=== PATIENT | male | born 1970 | race Caucasian/White ===

== ENCOUNTER 2018-11-10 10:25 | Emergency (ER) | payer MEDICAID, SELFPAY ==
[2018-11-10 10:28] VITALS: BP 128/73; PULSE 56; RESP 16; TEMP 36.8; O2SAT 99
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
[2018-11-10 11:33] VITALS: BP 128/73; PULSE 56; RESP 16; TEMP 36.8; O2SAT 99
== END 2018-11-10 11:34 | disposition home or self-care (01) ==
LOC: ER 11:30
PROVIDERS: Emergency Provider Emergency Medicine; PCP Specialist/Technologist Athletic Trainer
DX: S30.0XXA Contusion of lower back and pelvis, initial encounter (principal); S20.222A Contusion of left back wall of thorax, initial encounter; V18.0XXA Pedal cycle driver injured in noncollision transport accident in nontraffic accident, initial encounter; Y93.55 Activity, bike riding
CPT/HCPCS: 99284; 71046; 72100

== ENCOUNTER 2018-12-05 19:54 | Emergency (ER) | payer MEDICAID, SELFPAY ==
[2018-12-05 19:56] VITALS: BP 123/76; PULSE 46; RESP 14; TEMP 36.6; O2SAT 97
--- NOTE | 2018-12-05 20:33 | ED.GENADUL_ITS ---
Discharge Plan Disposition Patient Disposition: HOME Condition: Good Discharge Details Chief Complaint: DentalOral Clinical Impression: Infectious disease contact Primary Care Provider: Ori Fisher ED Provider: Denilson Coates Home Meds and New Rx's Prescriptions: No Action ibuprofen [Advil] 200 mg Tablet 600 mg PO Q6H PRNRF: 0 Discharge Instructions Instructions: Oral Herpes Simplex Virus Infections (ED) Referrals: Ori Fisher [Primary Care Provider] - (Please keep your scheduled appoint with your primary care provider to discuss your health concerns) Discharge Data Discharge Date/Time-TO BE ENTERED AT DEPARTURE: 12/05/18 20:55 Medical Decision Making Patient presenting to the emergency department for concern about herpes simplex virus. Patient is requesting testing. Patient states at this time he is asymptomatic has no sores or lesions. Patient reports that his previous signi ficant other had issues with cold sores and now that he is in a new relationship he is concerned about passing them onto his new partner. Physical exam is completely unremarkable. Discussed with patient that this is mostly a clinical diagnosis and that given his overall healthy nature and unremarkable exam but no emergent findings are noted nor do I believe that any testing is required at this time. Patient was encouraged to follow-up with his primary care provider for any further concerns otherwise I do not feel that patient has any life- threatening illness or need of intervention at this time. Did discuss with patient [id number] therapies for outbreaks. After discussion of diagnosis and plan of care patient has no further needs, questions, or concerns and states clear understanding to return to the emergency department for any worsening symptoms. HPI General Mode of arrival: ambulatory . Date/Time Provider Initiated Documentation: 12/05/18 19:58 . Limitations to Documentation: no limitations . Information obtained by: patient and RN notes reviewed . History of Present Illness 48 year old M presents to the emergency department with the chief complaint of Concern about HSV-1, Patient notes no other symptoms.. Patient did receive the following treatments prior to arrival, none Related Data Home Medications Medication Instructions Recorded Confirmed ibuprofen [Advil] 600 mg PO Q6H PRN 11/10/18 11/10/18 Allergies Allergy/AdvReac Type Severity Reaction Status Date / Time No Known Allergies Allergy Unverified 11/10/18 11:14 General Stated Complaint: DentalOral SAHRA: 5 Review of Systems Constitutional Constitutional: Denies fever(s) ENT Ears, Nose, Mouth, and Throat: Reports as per HPI and Reports nose pain (Left nare lesion with outbreak) Genitourinary Genitourinary: Denies genital lesions [facility] Medical History Inguinal hernia Surgical History Repair of inguinal hernia (02/15/14) right Social History Smoking/Tobacco Use Status: Former Tobacco Use Alcohol Intake: current Alcohol Intake frequency: a few times a week Drug use: Daily Substance use type: marijuana Do you feel safe at home: Yes Do you feel safe in your relationship?: Yes Exam Const General: cooperative, healthy appearing, comfortable and no acute distress Nutritional Appearance: average body habitus Orientation: alert, awake and oriented x3 HENMT Ears: hearing grossly normal bilaterally, external ears normal and TM's normal bilaterally General nose exam: external nose normal, nares normal and no nasal polyps Face and sinus: normal facial exam Mouth: oral mucosae normal, lip normal and tongue normal Throat: posterior oropharynx normal, tonsils normal and uvula midline Resp Effort & Inspection: normal respiratory effort and able to speak in complete sentences Neuro General: alert, awake, oriented x3, gait normal and moves all extremities Course Vital Signs Vital signs: Vital Signs Temperature 36.6 C 12/05/18 19:56 Pulse 46 L 12/05/18 19:56 Respiratory Rate 14 12/05/18 19:56 Blood Pressure 123/76 12/05/18 19:56 Pulse Oximetry 97 12/05/18 19:56 Temperature 36.6 C 12/05/18 19:56 Temperature Source Tympanic 12/05/18 19:56 Pulse 46 L 12/05/18 19:56 Respiratory Rate 14 12/05/18 19:56 Respiratory Effort Non-Labored 12/05/18 20:02 Blood Pressure 123/76 12/05/18 19:56 Pulse Oximetry 97 12/05/18 19:56 Pain Level 0 12/05/18 20:02
[2018-12-05 20:53] VITALS: BP 123/76; PULSE 46; RESP 14; O2SAT 97
== END 2018-12-05 20:55 | disposition home or self-care (01) ==
PROVIDERS: Emergency Provider Nurse Practitioner Family; PCP Specialist/Technologist Athletic Trainer
DX: Z20.828 Contact with and (suspected) exposure to other viral communicable diseases (principal)
CPT/HCPCS: 99281

== ENCOUNTER 2018-12-10 09:28 | Outpatient (REF) | payer MEDICAID, SELFPAY ==
[2018-12-13 11:34] LABS: PSA, Screening 0.8 ng/ml (0-2.5)
== END 2018-12-10 09:48 ==
LOC: NCHCN 09:28
PROVIDERS: PCP Specialist/Technologist Athletic Trainer; Visit Provider Specialist/Technologist Athletic Trainer
DX: Z12.5 Encounter for screening for malignant neoplasm of prostate (principal); Z00.00 Encounter for general adult medical examination without abnormal findings
CPT/HCPCS: 84153

== ENCOUNTER 2019-05-25 12:30 | Outpatient (CLI) | payer MEDICAID, SELFPAY ==
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
== END 2019-05-25 12:50 ==
PROVIDERS: PCP Specialist/Technologist Athletic Trainer; Visit Provider Nurse Practitioner Family
DX: M48.02 Spinal stenosis, cervical region (principal); M47.812 Spondylosis without myelopathy or radiculopathy, cervical region
CPT/HCPCS: 72050

== ENCOUNTER 2021-08-05 09:44 | Outpatient (REF) | payer MEDICAID, SELFPAY ==
[2021-08-05 16:10] LABS: Hemoglobin A1C 5.8 % (<5.7)
[2021-08-05 16:24] LABS: Anion Gap 9.8 mmol/L (3-11); BUN 16 mg/dL (7-18); CO2 25.2 mmol/L (21.0-32.0); CREATININE 0.8 mg/dL (0.70-1.30); Calculated LDL 107 mg/dL (<100); Chloride 105 mmol/L (98-107); Cholesterol 198 mg/dL (<200); Glucose 92 mg/dL (74-106); HDL Cholesterol 82 mg/dL (40-60); Potassium 4.6 mmol/L (3.5-5.1); Sodium 140 mmol/L (136-145); Triglyceride 46 mg/dL (<150)
[2021-08-06 20:12] LABS: PSA, Screening 0.7 ng/mL (<=2.5)
[2021-08-07 10:12] LABS: Lyme Ab w Rflx to Lyme Confirm Negative (Negative)
[2021-08-08 15:08] LABS: Spotted Fever Group Ab IgG <1:64 (<1:64); Spotted Fever Group Ab IgM <1:64 (<1:64)
[2021-08-09 00:02] LABS: Anaplasma phagocytophilum Negative (Negative); B. miyamotoi PCR Negative (Negative); Babesia divergens/MO-1 Negative (Negative); Babesia duncani Negative (Negative); Babesia microti Negative (Negative); Ehrlichia chaffeensis Negative (Negative); Ehrlichia ewingii/canis Negative (Negative); Ehrlichia muris eauclairensis Negative (Negative)
== END 2021-08-05 09:45 | disposition home or self-care (01) ==
LOC: NCHCN 09:44
PROVIDERS: PCP Specialist/Technologist Athletic Trainer; Visit Provider Nurse Practitioner Family
DX: R53.83 Other fatigue (principal); M25.59 Pain in other specified joint; M25.562 Pain in left knee; Z12.5 Encounter for screening for malignant neoplasm of prostate; Z00.00 Encounter for general adult medical examination without abnormal findings; R73.09 Other abnormal glucose; Z13.220 Encounter for screening for lipoid disorders
CPT/HCPCS: 80048; 80061; 84153; 87798; 83036; 86618; 86757

== ENCOUNTER 2022-06-24 14:30 | Outpatient (CLI) | payer MEDICAID, SELFPAY ==
--- NOTE | 2022-06-24 | DI.RAD_ITS ---
Exam(s) XR TIB/FIB LT EXAM: XR TIB/FIB LT CLINICAL HISTORY: PAIN LEFT LOWER LEG M79.662. TECHNIQUE: 2D digital imaging was performed of the left tibia and fibula. Two images were obtained. AP and lateral views were obtained. COMPARISON: No exams were available for comparison FINDINGS: BONES: There is a nondisplaced fracture of the midshaft of the left fibula. There does appear to be some callus formation about the fracture suggesting a subacute fracture. Please correlate with patie nt's clinical history. No bony destructive lesion is seen. Visualized portion of knee and ankle join ts are unremarkable. SOFT TISSUE: Normal. IMPRESSION: Nondisplaced fracture involving the midshaft of the left fibula. There is a question of callus forma tion about the fracture suggesting a subacute fracture. However, please correlate with patient's cli nical history. DATA REPOSITORY: RADIATION DOSE DELIVERED:
--- OUTSIDE RECORDS SUMMARY | 2022-06-24 14:35 | XMS_ITS | CCD ---
Author Name Auto Generated Organization [facility] Care Team Providers Care Molder Machine Name Role Phone RENEE PEREZ, ISIDORO M Consulting Provider [phone] NEEDS UPDATE, UNKNOWN Referring Provider Unavail able PENDING, PCP Primary Care Provider Unavailabl e Allergies, Adverse Reactions, Alerts Substance Reaction Status NKA Active Medications Medication Instructions Start Date End Date Status tetanus/diphth/pertuss (Tdap) adult/adol 5 units-2.5 units-18.5 mcg/0.5 mL intramuscular suspension 0.5 mL, IM, 1TIMEONADMISSION, Start: 05/01/19 16:24:00 EST, Routine, Dose Form: INJProvide patient with Vaccine Information Sheet 05/01/2019 05/01/2019 Completed acetaminophen-hydrocodone 325 mg-5 mg oral tablet 1 tab, PO, Q4H PRN, Start: 05/01/19 22:54:00 EST, PRN Pain, Moderate, Routine, Dose Form: TABDo not exceed a total of 4000 mg acetaminophen (or 75 mg/kg for pediatric patients) per 24 hours from all products containing acetaminophen. Acetaminophen content - 1 axk=250 mg, 2 tabs =650 mg, 3 tabs = 975 mg. P&T approved substitute for Lortab and Vicodin. 05/01/2019 05/02/2019 Discontinued acetaminophen-hydrocodone 325 mg-5 mg oral tablet 1 tab, PO, Q4H PRN, PRN Pain, Moderate, X 2 Days, Dose Form: TAB, # 10 tab, 0 Refill(s) 05/02/2019 05/04/2019 Ordered gabapentin 300 mg oral capsule 300 mg ( 1 CAP ), PO, TID, Dose Form: CAP, # 21 CAP, 0 Refill(s) 05/02/2019 05/09/2019 Ordered Medrol Dosepak 4 mg oral tablet ( 1 packet(s) ), PO, PER PKG INFO, as directed on package labeling, X 6 Days, Dose Form: TAB, # 21 tab, 0 Refill(s) as directed on package labeling 05/02/2019 05/08/2019 Ordered Immunizations Vaccine Date Status Refusal Reason tetanus/diphth/pertuss (Tdap) adult/adol 05/01/2019 Given Vital Signs Most recent to oldest [Reference Range]: 1 2 3 PT Patient Goal List Go Home, Return to Previous Level of Function (05/02/2019 10:15:00) Most recent to oldest [Reference Range]: 1 2 3 Height in cm 177.8 cm (05/01/2019 23:39:00) Most recent to oldest [Refer ence Range]: 1 2 3 Height 70 in (05/01/2019 23:39:00) 70 in (05/01/2019 16:11:00) Most recent to oldest [Reference Range]: 1 2 3 Dosing Weight 81.63 kg (05/01/2019 23:55:48) Most recent to oldest [Refer ence Range]: 1 2 3 BMI Calculation 25.82 (05/01/2019 23:39:00) 0 (05/01/2019 16:11:00) Most recent to oldest [Refer ence Range]: 1 2 3 Admission Weight lbs 180 lb (05/01/2019 23:39:00) 0 lb (05/01/2019 16:11:00) Most recent to oldest [Reference Range]: 1 2 3 Blood Pressure [95-159/60-90 mmHg] <content ID='[id number]' >133</content>/<cont ent ID='[id number]' >86</content> mmHg (05/02/2019 13:22:00) <content ID='[id number]' >115</content>/<cont ent ID='[id number]' >72</content> mmHg (05/02/2019 06:04:00) <content ID='[id number] '>129</content>/<co ntent ID='[id number] '>65</content> mmHg (05/02/2019 02:43:00) Most recent to oldest [Reference Range]: 1 2 3 Mean Cuff Pressure [70-105 mmHg] 99 mmHg (05/01/2019 23:12:00) 97 mmHg (05/01/2019 18:19:00) 93 mmHg (05/01/2019 17:09:00) Most recent to oldest [Reference Range]: 1 2 3 Vital Signs Extremity 1 Left arm (05/02/2019 13:22:00) Left arm (05/02/2019 06:04:00) Left arm (05/02/2019 02:43:00) Most recent to oldest [Reference Range]: 1 2 3 Heart Rate Monitor [60-100 bpm] 54 bpm *LOW* (05/01/2019 23:12:00) 60 bpm (05/01/2019 22:11:00) 58 bpm *LOW* (05/01/2019 20:45:00) Most recent to oldest [Reference Range]: 1 2 3 Respiratory Rate [12-20 rpm] 18 rpm (05/02/2019 15:19:00) 18 rpm (05/02/2019 13:22:00) 18 rpm (05/02/2019 10:03:00) Most recent to oldest [Reference Range]: 1 2 3 Temperature Temporal Artery [97.2-100 DegF] 99.8 DegF (05/02/2019 13:22:00) 98.0 DegF (05/02/2019 06:04:00) 97.6 DegF (05/02/2019 02:43:00) Most recent to oldest [Reference Range]: 1 2 3 SpO2 [90-100 %] 97 % (05/02/2019 13:22:00) 97 % (05/02/2019 06:04:00) 96 % (05/02/2019 02:43:00) Most recent to oldest [Reference Range]: 1 2 3 O2 Delivery Room Air (05/02/2019 13:22:00) Room Air (05/02/2019 09:00:00) Room Air (05/02/2019 06:04:00) Results Most recent to oldest [Reference Range]: 1 ALB [3.5-5.2 g/dL] 3.8 g/dL (05/02/2019 05:14:00) ANION GAP [7.0-16.0 mEq/L] 9.0 mEq/L (05/02/2019 05:14:00) BASO % 1 % *NA* (05/02/2019 05:14:00) BASO CT [0.0-0.2 K/uL] 0.1 K/uL (05/02/2019 05:14:00) BUN [7-25 mg/dL] 11 mg/dL (05/02/2019 05:14:00) CA [8.7-10.3 mg/dL] 9.1 mg/dL (05/02/2019 05:14:00) CL [98-109 mEq/L] 101 mEq/L (05/02/2019 05:14:00) CO2 [20-29 mEq/L] 26 mEq/L (05/02/2019 05:14:00) CREA [0.76-1.27 mg/dL] 0.62 mg/dL *LOW* (05/02/2019 05:14:00) EOS % 2 % *NA* (05/02/2019 05:14:00) EOS CT [0.0-0.5 K/uL] 0.1 K/uL (05/02/2019 05:14:00) GLUCOSE [70-99 mg/dL] 98 mg/dL (05/02/2019 05:14:00) HCT [37.5-51.0 %] 36.7 % *LOW* (05/02/2019 05:14:00) HGB [12.6-17.7 g/dL] 11.9 g/dL *LOW* (05/02/2019 05:14:00) LYMPH% 24 % *NA* (05/02/2019 05:14:00) LYMPH CT [0.7-3.1 K/uL] 1.5 K/uL (05/02/2019 05:14:00) MCH [26.6-33.0 pg] 30.4 pg (05/02/2019 05:14:00) MCHC [31.5-35.7 g/dL] 32.4 g/dL (05/02/2019 05:14:00) MCV [79-97 fL] 94 fL (05/02/2019 05:14:00) MONO% 9 % *NA* (05/02/2019 05:14:00) MONO CT [0.1-0.9 K/uL] 0.6 K/uL (05/02/2019 05:14:00) MPV [7.4-10.4 fL] 9.6 fL (05/02/2019 05:14:00) NEUT% 64 % *NA* (05/02/2019 05:14:00) NEUT CT [1.4-7.0 K/uL] 4.1 K/uL (05/02/2019 05:14:00) OSMO CALC [275.0-290.0 mOsm/L] 281.4 mOs m/L (05/02/2019 05:14:00) PLT CNT [150-450 K/uL] 287 K/uL (05/02/2019 05:14:00) K [3.5-5.3 mEq/L] 3.7 mEq/L (05/02/2019 05:14:00) RBC [4.14-5.80 M/uL] 3.92 M/uL *LOW* (05/02/2019 05:14:00) RDW [12.3-15.4 %] 12.3 % (05/02/2019 05:14:00) NA [134-144 mEq/L] 136 mEq/L (05/02/2019 05:14:00) WBC [3.4-10.8 K/uL] 6.4 K/uL (05/02/2019 05:14:00) CA-ALBCORR [8.4-10.6 mg/dL] 9.3 mg/dL (05/02/2019 05:14:00) GFR-BLACK [>=59 GFR] 137 GFR (05/02/2019 05:14:00) GFR-NONBLK [>=59 GFR] 118 GFR (05/02/2019 05:14:00) ABO/Rh A POS *Unknown* (05/01/2019 16:20:00) Antibody Screen Negative ABSC (05/01/2019 16:20:00) NRBC % 0.0 % *NA* (05/02/2019 05:14:00) eCrCl 152.08 mL/min 1 (05/02/2019 05:14:00) Na-i [135-145 mmol/L] 140 mmol/L (05/01/2019 16:39:34) K-i [3.6-5.0 mmol/L] 4.0 mmol/L (05/01/2019 16:39:34) Ca Ionic-i [1.15-1.35 mmol/L] 1.14 mmol/ L *LOW* (05/01/2019 16:39:34) Glu-i [70-99 mg/dL] 117 mg/dL *HI* (05/01/2019 16:39:34) Creatinine-i [0.7-1.5 mg/dL] 0.7 mg/dL (05/01/2019 16:39:34) BUN-i [8-26 mg/dL] 15 mg/dL (05/01/2019 16:39:34) Hgb-i [12-17 g/dL] 13.3 g/dL (05/01/2019 16:39:34) Hct-i [38-51 %PCV] 39.0 %PCV (05/01/2019 16:39:34) TCO2 A-I [24-29 mmol/L] 26 mmol/L *N* (05/01/2019 16:39:34) Cl-i [98-107 mmol/L] 105 mmol/L (05/01/2019 16:39:34) Anion Gap-i [10-20 mmol/L] 14.0 mmol/L *N* (05/01/2019 16:39:34) IMM GRAN % 0.0 % *NA* (05/02/2019 05:14:00) IMM GRAN CT [0.0-0.1 K/uL] 0.0 K/uL (05/02/2019 05:14:00) NRBC 0 *NA* (05/02/2019 05:14:00) 1Result Comment: Calculated with Discern Rule using the Cockroft-Gault method and the patient's mostrecent weight in kg. Calculated on patients who are greater than or equal to 18 years of age. Adjusted for gender.
--- OUTSIDE RECORDS SUMMARY | 2022-06-24 14:35 | XMS_ITS | CCD ---
Author Name Auto Generated Organization [facility] Care Team Providers Care Clerical Transcriber Name Role Phone PENDING, PCP Primary Care Provider Unavailabl e Self, Referral Consulting Provider Unavailable Allergies, Adverse Reactions, Alerts Substance Reaction Status NKA Active Medications Medication Instructions Start Date End Date Status tetanus/diphth/pertuss (Tdap) adult/adol 5 units-2.5 units-18.5 mcg/0.5 mL intramuscular suspension 0.5 mL, IM, 1TIMEONADMISSION, Start: 05/01/19 16:24:00 EST, Routine, Dose Form: INJProvide patient with Vaccine Information Sheet 05/01/2019 05/01/2019 Completed gabapentin 300 mg oral capsule 300 mg ( 1 CAP ), PO, TID, Dose Form: CAP, # 21 CAP, 0 Refill(s) 05/02/2019 05/09/2019 Ordered Immunizations Vaccine Date Status Refusal Reason tetanus/diphth/pertuss (Tdap) adult/adol 05/01/2019 Given Procedures Procedures Date Related Diagnosi s ER DEPT VST:DET HX/EX;MOD CO 05/01/2019 00:00:00 IMMUNIZATION ADMIN 05/01/2019 00:00:00
== END 2022-06-24 14:50 ==
LOC: DI 14:31
PROVIDERS: PCP Specialist/Technologist Athletic Trainer; Visit Provider Nurse Practitioner Family
DX: M79.662 Pain in left lower leg (principal)
CPT/HCPCS: 73590

== ENCOUNTER 2022-08-18 18:24 | Outpatient (CLI) | payer MEDICAID, SELFPAY ==
--- NOTE | 2022-08-18 17:11 | DI.RAD_ITS ---
Exam(s) XR CERVICAL SPINE COMP 4-5V EXAM: XR CERVICAL SPINE COMP 4-5V CLINICAL HISTORY: CERVICALGIA--M54.2. TECHNIQUE: 2D digital imaging was performed. Six images were obtained. AP, odontoid, lateral and tereso ateral oblique images were obtained. COMPARISON: CR XR CERVICAL SPINE COMP 4-5V from 05/25/2019 FINDINGS: The odontoid is intact. The lateral masses are well aligned. There is straightening of the normal ce rvical lordosis. There is disc space narrowing at C3-4, C4-C5 and C5-C6. There are endplate osteoph ytes at multiple levels of the cervical spine. No acute fracture or subluxation is present. Multilev el neural foraminal stenosis is seen. The findings are most marked at C5-C6. There are degenerative changes of the facets bilaterally. The cervical thoracic junction is well maintained. The preverte bral soft tissues are unremarkable. Lung apices are clear. IMPRESSION: Moderate degenerative changes in the cervical spine. DATA REPOSITORY: RADIATION DOSE DELIVERED:
--- NOTE | 2022-08-18 18:02 | DI.VRAD_ITS ---
PROCEDURE INFORMATION: Exam: XR Spine; Cervical Exam date and time: 08/18/2022 5:01 PM Age: 52 years old Clinical indication: Pain; Pain: Cervicalgia TECHNIQUE: Imaging protocol: XR of the spine. Exam focused on the cervical spine. Views: 1 view. COMPARISON: CR XR CERVICAL SPINE COMP 4-5V 05/25/2019 2:53 PM FINDINGS: Bones/joints: Similar to the prior examination there subtle reversal of the normal lordosis of the superior portion of the cervical spine. There is unchanged [id number] intervertebral disc space narrowing C3-C7. There is facet joint space narrowing especially of the right side. The right C5-C6 neural foramina is poorly visualized and could be narrowed. The uncovertebral joints show moderate sclerosis and joint space narrowing. Soft tissues: No prevertebral soft tissue edema. IMPRESSION: Relatively unchanged is the moderate spondylosis of the cervical spine. Dictated and Authenticated by: Jose Alberto Hope MD. Ordering:HENRIETTA ASCENCIO MD
== END 2022-08-18 18:44 ==
LOC: DI 18:26
PROVIDERS: PCP Nurse Practitioner Family; Visit Provider Nurse Practitioner Family
DX: M50.33 Other cervical disc degeneration, cervicothoracic region (principal)
CPT/HCPCS: 72050

== ENCOUNTER 2022-09-08 13:20 | Outpatient (REF) | payer MEDICAID, SELFPAY ==
[2022-09-10 10:26] LABS: Hepatitis B Surface Ag Negative (Negative)
[2022-09-10 10:42] LABS: Hepatitis C Ab w Rflx HCV PCR Negative (Negative)
[2022-09-10 11:02] LABS: HIV-1/2 Ag & Ab Screen Negative (Negative)
[2022-09-10 11:20] LABS: Syphilis Serology (RPR) Negative (Negative)
[2022-09-10 13:02] LABS: Chlamydia Result Negative (Negative); GC Result Negative (Negative)
== END 2022-09-08 13:21 | disposition home or self-care (01) ==
LOC: LBN 13:20
PROVIDERS: PCP Nurse Practitioner Family; Visit Provider Nurse Practitioner Family
DX: Z11.3 Encounter for screening for infections with a predominantly sexual mode of transmission (principal); Z11.4 Encounter for screening for human immunodeficiency virus [HIV]; Z11.59 Encounter for screening for other viral diseases
CPT/HCPCS: 86803; 87340; 87389; 87491; 87591; 86592

== ENCOUNTER 2022-11-13 19:19 | Outpatient (REF) | payer MEDICAID, SELFPAY ==
[2022-11-13 19:17] LABS: ALT 32 U/L (16-63); AST 25 U/L (15-37); Albumin 3.8 g/dL (3.4-5.0); Alkaline Phosphatase 61 U/L (46-116); Anion Gap 7.9 mmol/L (3-11); BUN 21 mg/dL (7-18); Bilirubin, Total 0.5 mg/dL (0.2-1.0); CO2 26.1 mmol/L (21.0-32.0); CREATININE 0.7 mg/dL (0.70-1.30); Calcium 9.1 mg/dL (8.5-10.1); Chloride 105 mmol/L (98-107); Estimated GFR 112.25 (mL/min/1.73m2); Glucose 140 mg/dL (74-106); Potassium 4.1 mmol/L (3.5-5.1); Sodium 139 mmol/L (136-145); Total Protein 7.4 g/dL (6.4-8.2)
[2022-11-13 19:19] LABS: Hemoglobin A1C 5.8 % (<5.7)
== END 2022-11-13 19:20 | disposition home or self-care (01) ==
LOC: NCHCN 19:19
PROVIDERS: PCP Nurse Practitioner Family; Visit Provider Nurse Practitioner Family
DX: R73.03 Prediabetes (principal)
CPT/HCPCS: 80053; 83036

== ENCOUNTER 2023-09-21 15:49 | Outpatient (REF) | payer BC, SELFPAY ==
[2023-09-23 11:23] LABS: Lyme Ab w Rflx to Lyme Confirm Negative (Negative)
[2023-09-24 20:23] LABS: Anaplasma phagocytophilum Negative (Negative); B. miyamotoi PCR Negative (Negative); Babesia divergens/MO-1 Negative (Negative); Babesia duncani Negative (Negative); Babesia microti Negative (Negative); Ehrlichia chaffeensis Negative (Negative); Ehrlichia ewingii/canis Negative (Negative); Ehrlichia muris eauclairensis Negative (Negative)
== END 2023-09-21 15:50 | disposition home or self-care (01) ==
LOC: NCHCN 15:49
PROVIDERS: PCP Nurse Practitioner Family; Visit Provider Nurse Practitioner Family
DX: T14.8XXA Other injury of unspecified body region, initial encounter (principal); W57.XXXA Bitten or stung by nonvenomous insect and other nonvenomous arthropods, initial encounter
CPT/HCPCS: 87798; 86618

== ENCOUNTER → 2023-10-01 15:15 | Outpatient (CLI) | payer BC, SELFPAY ==
--- NOTE | 2023-10-01 | DI.RAD_ITS ---
Exam(s) XR HAND LT COMPLETE XR WRIST LT COMPLETE EXAM: XR WRIST LT COMPLETE CLINICAL HISTORY: Pain in lt wrist, M25.532. TECHNIQUE: 2D digital imaging was performed. Three views of the wrist and hand. COMPARISON: CR XR HAND LT COMPLETE from 10/01/2023 CR XR WRIST LT COMPLETE from 10/01/2023 CR XR WRIST RT COMPLETE from 10/01/2023 FINDINGS: BONES: No acute fracture is present. Old ulnar styloid fracture. No bony destructive lesion is seen . Degenerative cyst in the radial styloid and distal pole of the navicular.. JOINTS: Narrowing at the radial scaphoid joint. Degenerative changes seen to a lesser extent in the remaining carpal articulations and interphalangeal joints of the fingers. SOFT TISSUE: Chronic appearing bony density seen dorsal to the radial carpal joint. IMPRESSION: Degenerative changes, greatest at the radial scaphoid joint. No acute abnormality. DATA REPOSITORY: RADIATION DOSE DELIVERED:
--- NOTE | 2023-10-01 | DI.RAD_ITS ---
Exam(s) XR WRIST RT COMPLETE EXAM: XR WRIST RT COMPLETE CLINICAL HISTORY: Pain in rt wrist, M25.531. TECHNIQUE: 2D digital imaging was performed. Three views. COMPARISON: CR XR WRIST LT COMPLETE from 10/01/2023 FINDINGS: BONES: No acute fracture is present. No bony destructive lesion is seen. JOINTS: The carpal bones are normally aligned. Narrowing at the capitate lunate joint. Degenerativ e changes chain the bases of the 2nd and 3rd metacarpals. SOFT TISSUE: Chronic appearing small bony density seen on the lateral view dorsally at the level of t he lunate. IMPRESSION: Degenerative changes. No acute abnormality. DATA REPOSITORY: RADIATION DOSE DELIVERED:
== END ==
PROVIDERS: PCP Nurse Practitioner Family; Visit Provider Physician Assistant Medical
DX: M25.532 Pain in left wrist (principal); M19.032 Primary osteoarthritis, left wrist; M19.042 Primary osteoarthritis, left hand
CPT/HCPCS: 73110; 73130

== ENCOUNTER 2024-08-29 01:13 | Outpatient (CLI) | payer BC, SELFPAY ==
--- NOTE | 2024-08-29 | DI.MRI_ITS ---
Exam(s) MR CERVICAL SPINE WO EXAM: MR CERVICAL SPINE WO CLINICAL HISTORY: cervical stenosis of spinal canal M48.02 Neuroforaminal narrowing TECHNIQUE: Multiplanar multisequence MRI of the cervical spine was performed without intravenous contrast. COMPARISON: CR,XR XR CERVICAL SPINE COMP 4-5V from 08/18/2022 FINDINGS: BONES: Vertebral body heights are maintained. Mild degenerative reversal of the normal cervical lordosis at C 3 4. Bone marrow signal intensity is within normal limits. Facet degenerative changes noted throughout. CERVICAL CORD: Craniovertebral junction is unremarkable. The cervical cord is normal size and signal intensity. SOFT TISSUES: Unremarkable. C2-3: No disc herniation or bulge is identified. No evidence of neural foraminal narrowing. No significant central canal stenosis. C3-4: Moderate loss of disc height. Broad-based disc osteophytes eccentric toward the left. Effacement of the anterior CSF space. Moderate to severe neural foraminal narrowing, left greater than right. C4-5: Moderate loss of disc height. Circumferentially projecting osteophytes. Mild effacement of the anterior CSF space. Moderate 2 severe bilateral neural foraminal narrowing. No significant central canal stenosis. C5-6: Moderate loss of disc height. Circumferential disc osteophytes. Narrowing of the AP dimension of the central canal with out CSF remaining. Severe bilateral neural foraminal narrowing, right greater than left. C6-7: Mild loss of disc height. Small endplate osteophytes. Mild bilateral neural foraminal narrowing.. No significant central canal stenosis. C7-T1: No disc herniation or bulge is identified. No evidence of neural foraminal narrowing. No significant central canal stenosis. IMPRESSION: Degenerative changes combining to produce central canal stenosis at C3-4 and C5- 6. Multilevel bilateral neural foraminal narrowing. No focal disc herniation. DATA REPOSITORY:
== END 2024-08-29 01:33 ==
PROVIDERS: PCP Nurse Practitioner Family; Visit Provider Nurse Practitioner Family
DX: M48.02 Spinal stenosis, cervical region (principal)
CPT/HCPCS: 72141